=== PATIENT | female | born 1940 | race Caucasian/White ===

== ENCOUNTER 2022-04-07 17:47 | Emergency (ER) | payer MEDICARE, SELFPAY ==
--- NOTE | ~2022-04-07 | CT_ITS ---
Indication: Fall EXAMINATION: CT the brain, CT cervical spine, CT facial bones. Axial imaging with coronal and sagittal reformatted images. This CT examination was performed using dose optimization techniques as appropriate, variously including the following: *Automated exposure control *Adjustment of mA and/or kV according to patient size (this includes techniques or standardized protocols for targeted exams where dose is matched to indication/reason for exam; i.e. extremities or head) *Use of iterative reconstruction technique. Radiation dose 732, 420, 365. CT brain; There is no midline shift. There is no mass effect. There is no hemorrhage. The basal cisterns appear patent. The posterior fossa is grossly within normal limits. There is no extra-axial collection. Scattered areas of white matter ischemic changes. Appear moderate. No evidence for fracture on the bone windows. CT cervical spine; Degenerative changes and scoliosis. Reversal of the normal lordosis. [place] at 5. Grade 1 anterolisthesis of C3 on C4. This is likely degenerative in nature. CT of the facial bones; No acute fracture is seen. CT/CT facial bones wo IV con IMPRESSION: Negative acute noncontrast CT of the brain. No acute fracture or dislocation of the cervical spine. No fracture seen in the facial bones.
--- NOTE | ~2022-04-07 | CT_ITS ---
Indication: Fall EXAMINATION: CT the brain, CT cervical spine, CT facial bones. Axial imaging with coronal and sagittal reformatted images. This CT examination was performed using dose optimization techniques as appropriate, variously including the following: *Automated exposure control *Adjustment of mA and/or kV according to patient size (this includes techniques or standardized protocols for targeted exams where dose is matched to indication/reason for exam; i.e. extremities or head) *Use of iterative reconstruction technique. Radiation dose 732, 420, 365. CT brain; There is no midline shift. There is no mass effect. There is no hemorrhage. The basal cisterns appear patent. The posterior fossa is grossly within normal limits. There is no extra-axial collection. Scattered areas of white matter ischemic changes. Appear moderate. No evidence for fracture on the bone windows. CT cervical spine; Degenerative changes and scoliosis. Reversal of the normal lordosis. [place] at 5. Grade 1 anterolisthesis of C3 on C4. This is likely degenerative in nature. CT of the facial bones; No acute fracture is seen. CT/CT head/brain wo IV con IMPRESSION: Negative acute noncontrast CT of the brain. No acute fracture or dislocation of the cervical spine. No fracture seen in the facial bones.
--- NOTE | ~2022-04-07 | CT_ITS ---
Indication: Fall EXAMINATION: CT the brain, CT cervical spine, CT facial bones. Axial imaging with coronal and sagittal reformatted images. This CT examination was performed using dose optimization techniques as appropriate, variously including the following: *Automated exposure control *Adjustment of mA and/or kV according to patient size (this includes techniques or standardized protocols for targeted exams where dose is matched to indication/reason for exam; i.e. extremities or head) *Use of iterative reconstruction technique. Radiation dose 732, 420, 365. CT brain; There is no midline shift. There is no mass effect. There is no hemorrhage. The basal cisterns appear patent. The posterior fossa is grossly within normal limits. There is no extra-axial collection. Scattered areas of white matter ischemic changes. Appear moderate. No evidence for fracture on the bone windows. CT cervical spine; Degenerative changes and scoliosis. Reversal of the normal lordosis. [place] at 5. Grade 1 anterolisthesis of C3 on C4. This is likely degenerative in nature. CT of the facial bones; No acute fracture is seen. CT/CT cervical spine wo IV con IMPRESSION: Negative acute noncontrast CT of the brain. No acute fracture or dislocation of the cervical spine. No fracture seen in the facial bones.
--- NOTE | ~2022-04-07 | XR_ITS ---
EXAMINATION: XR HAND, LEFT CLINICAL INFORMATION: Fall. COMPARISON: None TECHNIQUE: 3 views. of the left hand. FINDINGS: There is osteopenia. No acute fracture. No dislocation. There are chronic changes. Deformity from an old healed fracture distal radius. 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 There is chondrocalcinosis of the TFCC. There is joint narrowing with marginal bone spurs at the IP joints of the digits. Mild joint narrowing of the metacarpal carpal joints without bony erosion or bone spur. No bony ankylosis. XR/XR hand LT 2V IMPRESSION: 1. No acute abnormality. 2. 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
[2022-04-07 18:11] VITALS: BP 148/94; PULSE 87; RESP 19; TEMP 36.6; O2SAT 98; BMI 20.9
[2022-04-07] MEDS: Lidocaine HCl 1 % MPF 2 ML VIAL INFILTRATI ×3 (20:17)
[2022-04-07] MEDS: Diphth,Pertus(ACell),Tet Adult 0.5 ML SYRINGE IM (21:01)
--- NOTE | 2022-04-07 21:06 | ED_ITS ---
HPI - Head Injury General Chief complaint: Head Injury Stated complaint: fall - nose inj Time Seen by Provider: 04/07/22 19:42 Source: patient Mode of arrival: ambulatory History of Present Illness HPI Narrative: 82-year-old female with no significant past medical history presenting to the ED complaining of facial laceration and left hand laceration/abrasion s/p mechanical trip and fall while walking on the pavement around 16:00 today. Reports face planting cement, denies symptoms prior to fall, denies LOC. Denies taking anticoagulation. Reports mild headache at present. Denies vision change/loss, neck pain, back pain, nausea, vomiting. Tetanus unknown MD Complaint: head injury Onset (ago): hour(s) Related Data Previous Rx's Medication Instructions Recorded bacitracin 500 unit/gram topical 1 appl topical BID #30 grams 04/07/22 ointment cephalexin 500 mg capsule 500 mg PO QID 7 days #28 caps 04/07/22 Allergies Allergy/AdvReac Type Severity Reaction Status Date / Time No Known Allergies Allergy Verified 04/07/22 19:20 Review of Systems Review of Systems: Constitutional: No Fever, No Chills, No Fatigue, No Malaise ENT/Mouth: No Ear Pain, No Nasal Congestion, No Sinus Pain, No Hoarseness, No sore throat, No Rhinorrhea, No Swallowing Difficulty Eyes: No Eye Pain, No Swelling, No Redness, No Vision Changes Cardiovascular: No Chest Pain, No SOB, No Edema, No Palpitations Respiratory: No Cough, No Sputum, No Dyspnea Gastrointestinal: No Nausea, No Vomiting, No Diarrhea, No Constipation, No Abdominal pain Genitourinary: No Dysuria, No Urinary Incontinence/retention Musculoskeletal: No joint pain, No Myalgias, No Joint Swelling Skin: + Skin Lesions, No rash Neuro: No Weakness, No Numbness, No Paresthesias, No Loss of Consciousness, No Dizziness, + Headache Yes all other systems are reviewed and are negative Constitutional: Constitutional: Reports as per HPI Neurologic: Denies Abnormal speech present [facility] Past Medical History Attestation statement: The following information was validated with the patient. Social History Social History Advance Directives: No Advance Directives Information Provided: No Physical Exam Vital Signs: Vital Signs: Last Vital Signs Temp 98 F 04/07/22 18:11 Pulse 87 04/07/22 18:11 Resp 19 04/07/22 18:11 BP 148/94 H 04/07/22 18:11 Pulse Ox 98 04/07/22 18:11 O2 Del Method 04/07/22 18:11 BMI result Body Mass Index 20.9 Const: General: cooperative, healthy appearing and no acute distress Orientation/consciousness: patient oriented x3 Limitations: no limitations HEENT: Other: Skin tear to left forehead. + deep irregular laceration noted to nasal bridge with controlled bleeding. + nasal tenderness and slight ecchymosis to nasal bridge. + small 1 cm laceration noted to right lower nostril Head: Yes normal to inspection, Yes atraumatic, No Mcgrath's sign and No raccoon eyes Ears: hearing grossly normal bilaterally General nose exam: Normal external nose present Face and sinus: No crepitus, Yes ecchymosis, Yes laceration and Yes Facial tenderness on exam of face and sinuses Throat: Yes posterior oropharynx normal, Yes tonsils normal and Yes uvula midline Eyes: General: appearance normal, both eyes and all related structures Pupils: Equal, round and reactive pupils present EOM: EOMs intact bilaterally Neck: Other: no midline cervical spinous ttp Neck: Yes normal visual inspection and Yes no meningeal signs Chest: Chest palpation & inspection: normal inspection of the chest and no crepitus Resp: Effort & Inspection: normal respiratory effort and no respiratory distress Auscultation: clear to auscultation bilaterally Cardio: Rate: regular rate Heart sounds: S1 normal heart sound present and S2 normal heart sound present GI: Inspection: Yes normal to inspection Palpation (GI): Soft to palpation, nontender, no guarding and not rigid : General: Yes no CVA tenderness Back/Spine/Pelvis: Other: No midline thoracic/lumbar spinous tenderness/step-off or deformity Back: no CVA tenderness Skin: Rashes: no rashes Neuro: General: patient oriented x3, gait normal, tone normal, moves all extremities, no meningeal signs, no focal motor deficits and CN's II-XI intact bilaterally Cranial nerves: Yes CN's II-XII intact bilaterally and Yes Equal, round and reactive pupils present Cognition (Neuro): normal cognition Speech: No Abnormal speech present Gait exam (Neuro): Normal gait present Motor exam (neuro): 5/5 motor strength present throughout, Pronator motor function not present and no tremor noted Extrem: Other: Left 4th digit with no PIP swelling and 2 cm laceration. Small skin tear noted to volar aspect of hand. Full range of motion to hand/digits intact. Finger to thumb opposition intact. Neurovascularly intact. Course Course Course Narrative: Will repair nasal bridge, nostril, and finger laceration with sutures and skin tears with Dermabond CT head/brain wo IV con/CT cervical spine wo IV con/CT facial bones wo IV con IMPRESSION: Negative acute noncontrast CT of the brain. No acute fracture or dislocation of the cervical spine. ? No fracture seen in the facial bones. 2151--XR hand LT 2V IMPRESSION: ? 1. No acute abnormality. 2. 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 Results discussed with patient including worrisome signs and symptoms and strict return precautions, and when to return to the emergency department. They verbalized understanding and feel safe for discharge at this time. MDM - Head Injury MDM Narrative Medical decision making narrative: 82-year-old female with no significant past medical history presenting to the ED complaining of facial laceration and left hand laceration/abrasion s/p mechanical trip and fall while walking on the pavement around 16:00 today. On exam vital signs stable, NAD, nontoxic appearing, physical exam as above, no midline spinous tenderness throughout, no focal neuro deficits. Concern for ICH/fractures. Will update tetanus and repair wounds. Plan: Head/C-spine/facial CT, hand x-ray Differential Diagnosis Differential diagnosis: Likely concussion without loss of consciousness, epidural hematoma, closed head injury, subarachnoid hematoma and subdural hematoma Medical Records Attestation: I reviewed the patient's medical records. Lab Data Attestation: I reviewed the patient's lab results. Procedures Laceration Laceration 1: Site: face (Nasal bridge) Size (cm): 2 Description: irregular Depth: simple, single layer Local Anesthetic: lidocaine 1% Amount of anesthesia used (mL): 2 Pre-repair: wound explored Skin layer closed with: nylon Size (cm): 5-0 Number of sutures: 5 Technique: simple, interrupted Laceration 2: Side (If applicable): right (Nostril) Size (cm): 1 Description: linear Depth: simple, single layer Local Anesthetic: lidocaine 1% Amount of anesthesia used (mL): 1 Pre-repair: wound explored Skin layer closed with: nylon Size (cm): 6-0 Number of sutures: 2 Technique: simple, interrupted Laceration 3: Site: hand Side (If applicable): left Size (cm): 2 Description: linear Depth: simple, single layer Local Anesthetic: lidocaine 1% Amount of anesthesia used (mL): 2 Pre-repair: wound explored Skin layer closed with: nylon Size (cm): 4-0 Number of sutures: 4 Technique: simple, interrupted Discharge Plan Discharge Clinical Impression: Closed head injury, Face lacerations, Finger laceration, Multiple skin tears Patient Disposition: Home, Self-Care Instructions: Laceration (ED), Head Injury (ED) Additional Instructions: Your CT scans were unremarkable. Keep wounds dry and clean, apply bacitracin or Neosporin. Start taking Keflex which is an antibiotic as prescribed Your wounds were repaired today in the emergency department. You need to return to any emergency department or urgent care in 5 days to have the sutures removed from your face, and 7-10 days for the sutures in her hand Once sutures are removed apply anti scar cream like Mederma If area begins look infected, is red, there is drainage, streaking, or you have fever please return to the emergency department If you develop constant worsening headache, nausea/vomiting, weakness please return to the emergency department. Prescriptions: New bacitracin 500 unit/gram ointment 1 appl topical BID Qty: 30 0RF cephalexin 500 mg capsule 500 mg PO QID 7 Days Qty: 28 0RF Referrals: Jourdan Souza MD [Emergency Provider] - 5 days (Return to any emergency department in 5 days for sutures removed from your face & 7-10 for them removed from hand)
== END 2022-04-07 22:23 | disposition home or self-care (01) ==
PROVIDERS: Emergency Provider Internal Medicine
DX: S09.90XA Unspecified injury of head, initial encounter (principal); S01.21XA Laceration without foreign body of nose, initial encounter; S61.215A Laceration without foreign body of left ring finger without damage to nail, initial encounter; S61.412A Laceration without foreign body of left hand, initial encounter; W01.198A Fall on same level from slipping, tripping and stumbling with subsequent striking against other object, initial encounter; Y93.01 Activity, walking, marching and hiking; Y92.480 Sidewalk as the place of occurrence of the external cause; Y99.9 Unspecified external cause status
CPT/HCPCS: 12001; 12013; 70450; 70486; 72125; 73120; 90471; 90715; 99282; 99284

== ENCOUNTER 2022-04-18 17:18 | Emergency (ER) | payer MEDICARE, SELFPAY | END 2022-04-18 19:18 | disposition left against medical advice (07) | PROVIDERS: Emergency Provider Emergency Medicine | DX: Z48.02 Encounter for removal of sutures (principal) ==

== ENCOUNTER 2022-04-19 09:31 | Emergency (ER) | payer MEDICARE, SELFPAY ==
[2022-04-19 10:16] VITALS: BP 141/69; PULSE 76; RESP 18; TEMP 36.9; O2SAT 96; BMI 21.7
--- NOTE | 2022-04-19 11:40 | ED.GENADULT ---
HPI - General Adult General Chief complaint: General Medical Stated complaint: suture removal Time Seen by Provider: 04/19/22 10:57 History of Present Illness HPI narrative: Patient presents for suture removal from right finger and nose, they have been in for 10 days she has no complaint of any redness or swelling or pain or infection Related Data Previous Rx's Medication Instructions Recorded bacitracin 500 unit/gram topical 1 appl topical BID #30 grams 04/07/22 ointment cephalexin 500 mg capsule 500 mg PO QID 7 days #28 caps 04/07/22 Allergies Allergy/AdvReac Type Severity Reaction Status Date / Time No Known Allergies Allergy Verified 04/07/22 19:20 Review of Systems Review of Systems: Negatives are no fever no chills no dizziness no weakness no drainage from wound no redness no pain no swelling PMFSH Past Medical History Source: nursing notes reviewed Social History Social History Advance Directives: No Advance Directives Information Provided: No Physical Exam ED Vital Signs: Vital Signs - 24 hr 04/19/22 10:16 Temperature 98.4 F Pulse Rate 76 Respiratory Rate 18 Blood Pressure 141/69 H Pulse Oximetry 96 Oxygen Delivery Method Room Air BMI result Body Mass Index 21.7 General appearance comfortable no distress There are sutures in place on the bridge of the nose and on the right side of the nose, there is no redness no discharge from the wound no swelling no odor, no signs of any infection There all sutures in place on the right finger again full range of motion in the finger no redness no swelling no drainage no lymphangitis Neuro gait and balance are normal and interaction both comprehension and expression are normal Course Course Course Narrative: Sutures are easily removed with no wound dehiscence and patient is discharged Discharge Plan Discharge Clinical Impression: Visit for suture removal Patient Disposition: Home, Self-Care Additional Instructions: Sutures removed, no sign of any infection Return any concerns Prescriptions: No Action bacitracin 500 unit/gram ointment 1 appl topical BID Qty: 30 0RF cephalexin 500 mg capsule 500 mg PO QID 7 Days Qty: 28 0RF
== END 2022-04-19 11:54 | disposition home or self-care (01) ==
PROVIDERS: Emergency Provider Emergency Medicine
DX: Z48.02 Encounter for removal of sutures (principal); S01.21XD Laceration without foreign body of nose, subsequent encounter; S61.219D Laceration without foreign body of unspecified finger without damage to nail, subsequent encounter; X58.XXXD Exposure to other specified factors, subsequent encounter
CPT/HCPCS: 99282; 99283